=== PATIENT | male | born 1985 | race Caucasian/White ===

== ENCOUNTER → 2022-08-20 | Outpatient (CLI) | payer OTHER | LOC: M RAD 10:31 | PROVIDERS: ATTEND Physician Assistant Medical | DX: M25.562 Pain in left knee (principal) ==

== ENCOUNTER → 2022-09-26 | Outpatient (REF) | payer OTHER ==
[2022-09-26 09:37] LABS: SEMEN APPEARANCE OPAQUE (OPAQUE); SEMEN VISCOSITY VISCOUS (LIQUID); SEMEN WBC <=1 M/ml (<=1 M/ml); SEMEN pH 8.5 (7.0-8.0)
== END ==
LOC: M LAB REF 09:21
PROVIDERS: ATTEND Physician Assistant
DX: Z02.1 Encounter for pre-employment examination (principal)

== ENCOUNTER → 2022-10-01 | Outpatient (REF) | payer OTHER ==
[2022-10-01 14:45] LABS: SEMEN APPEARANCE OPAQUE (OPAQUE); SEMEN VISCOSITY LIQUID (LIQUID); SEMEN VOLUME 1.8 ml (2.0-5.0); SEMEN pH 8.5 (7.0-8.0); WBC CONCENTRATION >1 M/ml (<=1 M/ml)
== END ==
LOC: M LAB REF 14:41
PROVIDERS: ATTEND Physician Assistant
DX: Z31.0 Encounter for reversal of previous sterilization (principal)

== ENCOUNTER → 2024-02-18 | Outpatient (REF) | payer OTHER ==
[~2024-02-18] MED LIST: CYCL-707; FLUO-365; MELO15TA28
[2024-02-18 13:43] LABS: SEMEN APPEARANCE OPAQUE (OPAQUE); SEMEN VOLUME 2.6 ML (2.0-5.0)
[2024-02-18 13:44] LABS: SEMEN VISCOSITY LIQUID (LIQUID); SEMEN WBC >1 M/ml (<=1 M/ml); SEMEN pH 8.5 (7.0-8.0)
== END ==
LOC: M LAB REF 12:14
PROVIDERS: ATTEND Physician Assistant
DX: N46.9 Male infertility, unspecified (principal)

== ENCOUNTER → 2024-08-18 | Outpatient (CLI) | payer OTHER | LOC: M RAD 08:56 | PROVIDERS: ATTEND Physician Assistant | DX: R12 Heartburn (principal); K21.9 Gastro-esophageal reflux disease without esophagitis ==